=== PATIENT | female | born 1940 | race Caucasian/White ===

== ENCOUNTER 2021-04-12 06:29 | Observation (INO) ==
[2021-04-12] MEDS ORDERED: Albuterol 2.5mg/3 ml (0.083%) NEB.SOLN INH ONE (07:40)
[2021-04-12 09:19] LABS: ABS Lymphocytes 0.8 10^3/ul (1.0-4.8); ABS Monocytes 0.5 10^3/ul (0-0.8); ABS Neutrophils 4.4 10^3/ul (1.5-7.7); Eosinophil % 0.5 %; Hematocrit 40 % (35-47); Hemoglobin 13.4 g/dL (12.0-16.0); Lymphocyte % 13.3 %; Mean Corpuscular HGB Conc 34 g/dL (31-36); Mean Corpuscular Hemoglobin 29 pg (27-31); Mean Corpuscular Volume 86 fL (80-97); Mean Platelet Volume 7.5 fL (7.4-10.4); Platelet Count 234 10^3/uL (150-450); Red Cell Distribution Width 15 % (10-15); White Blood Count 5.7 10^3/uL (3.5-10.8)
[2021-04-12 09:38] LABS: ALT 159 U/L (7-52); AST 199 U/L (13-39); Albumin 3.7 g/dL (3.2-5.2); Albumin/Globulin Ratio 1.2 (1-3); Alkaline Phosphatase 76 U/L (35-149); Anion Gap 8 mmol/L (2-11); Blood Urea Nitrogen 30 mg/dL (6-24); CO2 Carbon Dioxide 32 mmol/L (22-32); Calcium 9.7 mg/dL (8.6-10.3); Chloride 100 mmol/L (101-111); Globulin 3.2 g/dL (2-4); Glucose 182 mg/dL (70-100); Potassium 3.4 mmol/L (3.5-5.0); Sodium 140 mmol/L (135-145); Total Protein 6.9 g/dL (6.4-8.9)
[2021-04-12 09:41] LABS: Troponin I 0.07 ng/mL (<0.03)
[2021-04-12 09:52] LABS: Rapid COVID-19 Molecular Undetected (Undetected)
[2021-04-12 12:44] LABS: Hepatitis B Surface Antigen Nonreactive (Nonreactive)
[2021-04-12 12:49] LABS: Hepatitis A Ab IgM Negative (Negative)
[2021-04-12 12:50] LABS: Hepatitis B Core IgM Nonreactive (Nonreactive)
[2021-04-12 13:02] LABS: Hepatitis C Antibody Negative (Negative)
[2021-04-12 13:04] LABS: Troponin I 0.11 ng/mL (<0.03)
[2021-04-12] MEDS: Enoxaparin 80 MG/0.8 ML SYR SUBCUT SCH (17:42)
[2021-04-12 18:29] LABS: Troponin I 0.09 ng/mL (<0.03)
[2021-04-13] MEDS: Enoxaparin 80 MG/0.8 ML SYR SUBCUT SCH ×2 (00:48→14:29)
[2021-04-13] MEDS ORDERED: Lorazepam PYXIS KEY PRN (12:42)
[2021-04-13] MEDS ORDERED: LORazepam 2 mg VIAL 1 ml IV PUSH ONE (15:00)
[2021-04-13] MEDS ORDERED: Iohexol 350 (CONTRAST) 500 ML MDV IV ONE (15:24)
[2021-04-13 19:33] VITALS: BP 155/66
== END 2021-04-13 18:20 | disposition home or self-care (01) ==
LOC: MED 06:29 → ED 06:29 → MED 16:19
PROVIDERS: ADMIT Internal Medicine; ATTEND Internal Medicine